=== PATIENT | male | born 2005 | race Caucasian/White ===

== ENCOUNTER 2023-09-16 02:59 | Emergency (ER) | payer SELFPAY ==
[~2023-09-16] VITALS: Ht 172.7 cm; Wt 72.0 kg
[2023-09-16 03:03] VITALS: BP 154/55; PULSE 65; RESP 18; TEMP 98
== END 2023-09-16 03:36 | disposition left against medical advice (07) ==
LOC: EMS 02:59
DX: R04.0 Epistaxis (principal); Z53.21 Procedure and treatment not carried out due to patient leaving prior to being seen by health care provider
CPT/HCPCS: 99281; Z7502

== ENCOUNTER 2024-08-26 06:37 | Emergency (ER) | payer MEDICAID, OTHER ==
[~2024-08-26] VITALS: Ht 177.8 cm; Wt 75.0 kg
[2024-08-26 06:41] VITALS: TEMP 98.6
[2024-08-26 08:34] LABS: COVID AG,FIA SOURCE NASAL SWAB
[2024-08-26 08:59] LABS: SARS-COV2 (COVID) ANTIGEN,FIA Negative (Negative)
[2024-08-26 09:00] LABS: INFLUENZA TYPE A NEGATIVE FOR TYPE A (NEGATIVE); INFLUENZA TYPE B NEGATIVE FOR TYPE B (NEGATIVE)
[2024-08-26] MEDS ORDERED: BENZ-227 PO (09:44)
[2024-08-26] MEDS ORDERED: OSEL75CA45 PO (09:44)
[2024-08-26 09:45] VITALS: BP 131/65; PULSE 90; RESP 16; O2SAT 97
== END 2024-08-26 10:25 | disposition home or self-care (01) ==
LOC: EMS 06:39
DX: J11.1 Influenza due to unidentified influenza virus with other respiratory manifestations (principal); Z20.822 Contact with and (suspected) exposure to COVID-19
CPT/HCPCS: 87804; 99283